=== PATIENT | male | born 1975 | race Caucasian/White ===

== ENCOUNTER 2016-11-05 11:01 | Emergency (ER) | payer OTHER ==
[~2016-11-05] VITALS: Ht 180.3 cm; Wt 122.5 kg
[~2016-11-05 11:01] MED LIST: BENTYL10 MG PO; BIAXIN250 MG PO; BYSTOLIC5 MG PO; KEFLEX500 MG PO; LAMICTAL25 MG PO; LOMOTIL 0.025 M1 TA1 PO; MOTRIN800 MG PO; NEXIUM20 M1 PO
[2016-11-05] MEDS ORDERED: ATORVASTATIN CA20 M1 PO (11:17)
[2016-11-05] MEDS ORDERED: ASPIRIN81 MG PO (11:17)
== END 2016-11-05 13:08 | disposition home or self-care (01) ==
LOC: ED 11:01
DX: S83.92XA Sprain of unspecified site of left knee, initial encounter (principal); S93.402A Sprain of unspecified ligament of left ankle, initial encounter; Z79.899 Other long term (current) drug therapy; Z79.82 Long term (current) use of aspirin; X58.XXXA Exposure to other specified factors, initial encounter; Y93.89 Activity, other specified; Y92.89 Other specified places as the place of occurrence of the external cause; Y99.8 Other external cause status

== ENCOUNTER → 2025-04-08 | Outpatient (CLI) | payer BC ==
[~2025-04-08] MED LIST changes: +ASPIRIN81 MG PO; +ATORVASTATIN CA20 M1 PO
== END | disposition home or self-care (01) ==
LOC: US 03-18 11:30
PROVIDERS: ATTEND Urology
DX: N28.1 Cyst of kidney, acquired (principal); N50.89 Other specified disorders of the male genital organs; N32.89 Other specified disorders of bladder